=== PATIENT | female | born 1995 | race Caucasian/White ===

== ENCOUNTER 2017-07-10 23:11 | Observation (INO) | payer OTHER ==
[~2017-07-10] VITALS: Ht 152.4 cm; Wt 113.1 kg
[2017-07-10] MEDS ORDERED: LARIN 1.5 MG-31 EACH PO (23:23)
[2017-07-10] MEDS ORDERED: ROBAXIN-750750 MG PO (23:23)
--- NOTE | 2017-07-11 03:00 | NUR ---
22YR OLD WOMAN ADMITTED FROM ER VIA STRETCHER TO ROOM 123. ONE PERSON ASSIST TO TRANSFER FROM STRETCHER TO BED. RATES ABD PAIN 4/10 SINCE RECIEVING PAIN MEDICATION IN ER. DENIES NAUSEA. ORIENTED TO ROOM AND CALL LIGHT. TEXTING ON PHONE TO FRIENDS. ORDERS NOTED.
--- NOTE | 2017-07-11 03:27 | NUR ---
VITALS AND WEIGHT DONE AND CHARTED. GOT PT WATER, SODA, AND JELLO. PT NEEDS NOTHING ELSE AT THIS TIME. BEDSIDE TABLE AND CALL LIGHT GIVEN.
--- NOTE | 2017-07-11 04:00 | NUR ---
PT RESTING WITH EYES CLOSED, RESP EVEN AND UNLABORED, IVF PATENT, CALL LIGHT IN EASY REACH.
--- NOTE | 2017-07-11 04:54 | NUR ---
PT AWAKE C/O 10 PAIN IN RUQ OF ABD, DILAUDID 0.4MG IV GIVEN, SBA UP TO BATHROOM TO VOID 200ML DARK YELLOW URINE. CALL LIGHT IN EASY REACH.
--- NOTE | 2017-07-11 05:16 | NUR ---
PT CONT. TO RATE PAIN 9/10 AFTER DILAUDID 0.2MG IV GIVEN, ADDITIONAL 0.2MG IV GIVEN NOW. REPOSITIONED AGAIN, SITTING WITH PT SO SHE WILL CALM DOWN, VERY ANXIOUS.
--- NOTE | 2017-07-11 05:37 | NUR ---
PT REPORTS PAIN NOW 5/10, MUCH CALMER, TEXTING ON PHONE. IVF PATENT. NO NAUSEA.
--- NOTE | 2017-07-11 05:52 | NUR ---
VITALS AND I&OS DONE AND CHARTED. BEDSIDE TABLE AND CALL LIGHT IN REACH.
--- NOTE | 2017-07-11 06:26 | NUR ---
PT C/O PAIN IN MID UPPER R QUADRANT OF ABD. MEDICATED X2 WITH DILAUDID IV FOR PAIN, NO NAUSEA. IVF PATENT, PT IS EXTREMELY ANXIOUS ABOUT NEEDLES. NEED TO PROTECT IV SITE. TYLENOL GIVEN IN ER FOR TEMP. URINE VERY DARK YELLOW. VAG BLEEDING FOR 6 DAYS. NEEDS LOTS OF EMOTIONAL SUPPORT.
--- NOTE | 2017-07-11 08:00 | NUR ---
PATIENT SITTING IN BED, C/O ABD PAIN OCCASIONALLY, BUT REALLY DOES NOT ANYONE TO TOUCH HER IV. PATIENT ATE HARDLY ANY OF HER CLEAR LIQUID BREAKFAST.
--- NOTE | 2017-07-11 09:00 | NUR ---
IN ROOM TO SEE PATIENT.
--- NOTE | 2017-07-11 10:16 | NUR ---
PATIENT HAVING 5/10 ABD PAIN AND WAS GIVEN 5 MG OXYCONTIN. PATIENT HAS ALSO REFUSED LOVENOX INJECTINS SHE DOES NOT WANT TO BE POKED ANYMORE AND VERGES ON A PANICK ATTACK WHEN NEEDLES ARE DISCUSED.
--- NOTE | 2017-07-11 10:40 | NUR ---
PATIENT SITTING UP IN BED. PATIENT MOANED IN PAIN WHEN BP CUFF SQEEZED HER FORE ARM. UP TO BATHROOM WITH ONE PERSON ASSIST. PATIENT MOANED IN PAIN. PATIENT BACK TO BED WITH FRESH ICE WATER CALL BUTTON IN REACH. ORAL CARE DONE. HANDS AND FACE WASHED. RN IN ROOM. VISITORS IN ROOM WITH PATIENT HELPING PATIENT WITH HER HAIR.
--- NOTE | 2017-07-11 12:20 | NUR ---
PATIENT PAIN IS MUCH BETTER. FULL LIQUIS DIET ORDERED. PATIENT DROWSY, BUT VISITING WITH A COUPLE SCHOOL FRINEDS.PATIENT'S FAMILY LIVE QUITE SOME DISTANCE ,BUT THEY HAVE NO BEEN ABLE TO COME AND VISIT.
--- NOTE | 2017-07-11 13:24 | NUR ---
PT RESTING IN BED-ALERT, ORIENTED AND SUPPORTED BY 2 FRIENDS. THEY BROUGHT HER BALLOONS AND POPE. PT MENTIONED THAT SHE HAS NEVER HAD BALLONS EVER. GOOD FRIENDS. THEY ARE IN THE SAME AG PROGRAM AT [facility]. PT WAS IN SOME PAIN, REQUESTED WATER. ARUN KOCH CAME IN TO CHECK ON PT-ASKED HER TO BE SURE NOT TO FLUSH WHEN SHE VOIDS, BUT TO NOTIFY RN FOR STOOL SAMPLE. FEELS SOMETHING IS GOING ON IN PT'S COLON, AND LAB COULD BE A BIG HELP IN DIAGNOSING. SHE HAS TOLD HER MOTHER IN [place], BUT I WONDER IF A STAFF CONTACT MIGHT NOT BE IN ORDER. WILL WAIT TO GET OK FROM PT. WILL CONTINUE TO FOLLOW NEEDED
--- NOTE | 2017-07-11 13:44 | NUR ---
patient in bed talking on cell phone. fresh ice water given. visitors in room with patient. call button in reach no other needs at this time.
--- NOTE | 2017-07-11 14:05 | NUR ---
PATIENT CURRENTLY ON THE PHONE WITH HER MOTHER TALKING. PATIENT APPARS DEPRESSED AND HER FRIEND S ARE CURRENTLY NOT PRESENT. IV FLUIDS CHANGED TO D5/ LR AT 150MLS/HOUR AND FLAGYL BEING HUNG. 222 IV IN LAC STIL WORKING.
--- NOTE | 2017-07-11 14:42 | NUR ---
CHECKED ON PT, GOT HER PERMISSION TO CALL HER MOTHER AND VISIT WITH HER AND HAVE HER RN JOSHUA ALSO VISIT WITH HER. CALLED HER MOTHER CLEOPATRA LEONE AND HAD A GOOD CONVERSATION. SHE ALSO TALKED WITH ARUN LEWIS. WILL CONTINUE TO FOLLOW NEEDED
--- NOTE | 2017-07-11 15:22 | NUR ---
PATIENT HAVING ABD PAIN RETURNING TO 5/10. JUST TALKE WITH PATIENT'S MOTHER VIA CONSENT WITH THE CHART AND [employer]YE[employer] STITCHER DIANA [employer] LEIGH ANN. MOTHER CLEOPATRA HARRIS INFORMED US THE PATIENT GET S EXTREMELY CONSTIPATED WHEN SHE EATS ANY DAIRY PRODUCTS. PATIENT INFORMES ME SHE EATS DAIRY PRODUCTS ALL THE TIME AND THEY DON'T BOTHER HER MUCH HER MORE AYS THEY DO. PATIENT APPEARS DEPRESSED. HERE FRIENDS ARE NO LONGER HER AND SHE WAS JUST GIVEN 5 MG OXYCODONE AND A DOSE OF TORADAOL. PATIENT SHOULD BE GETTING UP TO WALK WITH HOME HEALTH LPN'S SHORTLY.
--- NOTE | 2017-07-11 17:21 | NUR ---
PATIENT SITTING IN BED WITH VISITOR IN ROOM. RAG BALER ASSISTED PATIENT TO BATHROOM WHERE SHE WASHED HERSELF AND CHANGED GOWNS. PATIENT AMBULATED WITH FRIEND. LINENS CHANGED. PATIENT SEEMS TO BE IN MUCH BETTER SPIRITS THIS AFTERNOON.
--- NOTE | 2017-07-11 18:59 | NUR ---
PATIENT RELAXING IN BED, BROUGHT HER SOME SOUP AND JELLO. REFILLED ICE WATER. SPIRITS STILL UP, BUT PAIN LEVEL @4(UNCOMFORTABLE) PATIENT SPILLED TOMATO SOUP ON LEFT SIDE AND LEFT ARM(IV AREA) SHE STATED IT DID NOT BURN OR HURT AT ALL. NEW GOWN WAS GIVEN, RN NOTIFIED. CALL LIGHT IN REACH AND NO OTHER NEEDS AT THIS TIME.
--- NOTE | 2017-07-11 19:30 | NUR ---
RECIEVED REPORT FROM JOSHUA DIAS. PATIENT RESTING IN BED. IN NO APPARANT DISTRESS. FRIENDS AT BEDSIDE. IVF INFUSING W/O DIFFICULTY. PATIENT DENIES NEEDS. CALL LIGHT IN REACH.
--- NOTE | 2017-07-11 20:30 | NUR ---
PATIENT RESTING IN BED. FRIENDS IN ROOM. PATIENT C/O GENERALIZED ABDOMINAL PAIN 5/10. STATES IT FEELS LIKE AN "INTENSE DULL PAIN." PATIENT STATES SHE IS PASSING FLATUS, SHE HAS NOT HAD A BM TODAY. ABD IS SOFT AND TENDER. TORADOL ADMINISTERED. I TOLD HER TO CALL IN 20 MINUTES IF SHE DOES NOT HAVE RELIEF. SHE DENIES NAUSEA. STATES SHE HAS HAD A PARRISH ALL DAY. LUNGS ARE CLEAR, HR REGULAR, PALPABLE PEDAL PULSES. PATIENT DENIES FURTHER NEEDS. ABX INFUSING. IV SITE WNL. CALL LIGHT IN REACH.
[2017-07-11] MEDS ORDERED: CIPROFLOXACIN500 MG PO (20:53)
[2017-07-11] MEDS ORDERED: METRONIDAZOLE500 MG PO (20:53)
[2017-07-11] MEDS ORDERED: OXYCODONE HCL5 MG PO (20:53)
--- NOTE | 2017-07-11 21:42 | NUR ---
ROUNDED CHARGE. PATIENT IS RESTING IN BED. PATIENT HAS NO COMPLAINTS, COMMENTS, QUESTIONS, OR CONCERNS AT THIS TIME. CALL LIGHT IN REACH.
--- NOTE | 2017-07-11 22:05 | NUR ---
PATIENT RESTING IN BED. NO C/O PAIN AT THIS TIME. SHE DOES C/O MILD NAUSEA. ZOFRAN ADMINISTERED. PATIENT DENIES FURTHER NEEDS. FRIENDS IN ROOM, CALL LIGHT IN REACH.
--- NOTE | 2017-07-12 00:16 | NUR ---
PATIENT SLEEPING. FRIEND AT BEDSIDE. IVF INFUSING W/O DIFFICULTY. EMPTIED HAT. CALL LIGHT IN REACH.
--- NOTE | 2017-07-12 02:44 | NUR ---
PATIENT SLEEPING. IVF INFUSING W/O DIFFICUTLY, CALL LIGHT IN REACH.
--- NOTE | 2017-07-12 04:30 | NUR ---
PATIENT UP TO BATHROOM WITH ASSIST. VOIDED. SHE REQUESTED TO AMBULATE HALLWAY WITH ASSISTANCE. WE MADE ONE LAP. PATIENT KEPT STOPPING IN THE HALLWAY LIKE SHE WAS TRYING TO CATCH HER BREATH. SHE STATES SHE IS IN PAIN. BACK TO ROOM PATIENT STATES SHE WAS NAUSEOUS WELL. TORADOL AND ZOFRAN ADMINISTERED. NEW BAG OF IVF INFUSING. PATIENT DENIES FURTHER NEEDS. BS ACTIVE, LUNGS CLEAR, HR REGULAR. CALL LIGHT IN REACH.
--- NOTE | 2017-07-12 08:10 | NUR ---
SONA SITTING UP IN BED EATING YOGURT, VISITORS IN ROOM. THIS GLOVE PAIRER CALLED DIETARY FOR MORE YOGURT FOR PATIENT, DOESNT LIKE CREAM OF WHEAT. THIS GLOVE PAIRER TALKED TO ARUN LEWIS, DIET MAY BE ADVANCED TODAY. CALL LIGHT IN REACH, NO OTHER NEEDS AT THIS TIME.
--- NOTE | 2017-07-12 09:20 | NUR ---
PATIENT SITTING UP IN BED WITH VISITOR IN ROOM. NO NEEDS AT THIS TIME. CALL BUTTON IN REACH.
--- NOTE | 2017-07-12 10:16 | NUR ---
REPORT RECIEVED FROM ARUN LEWIS. PT SITTING ON EDGE OF BED FILLING OUT PAPERWORK. PT BEING DISCHARGED SHORTLY AND NEEDS PCP. BETO PHELPS TO REMOVE IV. PT STATES SHE IS READY TO GO HOME.
--- NOTE | 2017-07-12 11:10 | NUR ---
PT DC'D HOME WITH FRIEND. PT WHEELED OUT TO CAR AND ASSISTED IN. STATES THAT HER ABD. IS FEELING BETTER AND HER NECK HURTS TODAY. EDUCATION GIVEN ON DIET AND MEDICATIONS. PT REFUSED FLU SHOT. IV REMOVED BY ICE CREAM MAN. VERIFIED.
--- NOTE | 2017-07-12 12:58 | NUR ---
PT SITTING ON BED, WITH FRIEND WITH HER. SHE WAS GOING OVER-SORT OF DC PAPERS. HAD A GOOD VISIT, ENCOURAGED HER TO TAKE ADVANTAGE OF OFFER TO STAY AT FRIENDS HOUSE WHILE SHE RECOUPS. PT KNOWS SHE NEEDS TO CHANGE SOME OF HER HABITS, AND IT WILL NOT BE THAT EASY. I ENCOURAGED HER TO CONTACT US IF SHE HAS ANY QUESTIONS. I PRAY SHE WILL FOLLOW THE HELP SHE HAS BEEN GIVEN. HER MOTHER IS UNABLE TO COME AND CARE FOR HER-SHE SEEMS TO HAVE SOME GREAT FRIENDS THAT ARE WILLING TO CARE FOR HER.
== END 2017-07-12 10:55 | disposition home or self-care (01) ==
LOC: ED 23:11 → MS 23:13
PROVIDERS: ADMIT Internal Medicine
DX: A09 Infectious gastroenteritis and colitis, unspecified (principal); E66.01 Morbid (severe) obesity due to excess calories; G89.29 Other chronic pain; M54.9 Dorsalgia, unspecified; Z79.3 Long term (current) use of hormonal contraceptives; Z79.899 Other long term (current) drug therapy; Z80.0 Family history of malignant neoplasm of digestive organs; Z68.42 Body mass index [BMI] 45.0-49.9, adult
CPT/HCPCS: 51701; 71046; 74177; 80053; 81001; 83605; 83690; 84703; 85025; 87040; 96361; 96365; 96366; 96367; 96374; 96375; 96376; 99285; G0378; J0744; J1170; J1885; J2405; J7030; J7120; Q9967